=== PATIENT | female | born 1990 | race Caucasian/White ===

== ENCOUNTER 2023-12-19 00:05 | Emergency (ER) | payer MEDICAID ==
[~2023-12-19] VITALS: Ht 160 cm; Wt 77.0 kg
[2023-12-19 00:10] VITALS: O2SAT 99
[2023-12-19 00:35] LABS: BASOPHILS % 0.3 % (0.0-2.0); EOSINOPHILS % 0.5 % (0.0-5.0); HEMATOCRIT. 35.3 % (36.0-48.0); HEMOGLOBIN. 11.7 g/dL (12.0-16.0); LYMPHOCYTES % 11.9 % (20.0-50.0); MEAN CORPUSCULAR HEMOGLOBIN 27.3 pg (28.0-32.0); MEAN CORPUSCULAR HGB CONC 33.2 g/dL (31.0-37.0); MEAN CORPUSCULAR VOLUME 82.3 fL (81.0-99.0); MEAN PLATELET VOLUME 8.6 fl (7.4-10.4); MONOCYTES % 4.7 % (2.0-8.0); NEUTROPHILS % 82.6 % (40.0-76.0); PLATELET 263 x1000/uL (130-400); RED BLOOD CELL COUNT 4.29 mill/uL (4.2-5.4); RED CELL DISTRIBUTION WIDTH 14.1 % (11.6-14.6); WHITE BLOOD COUNT 9.3 x1000/uL (4.5-11.0)
[2023-12-19 00:48] LABS: CHLORIDE 109 mEq/L (98-107); POTASSIUM 3.7 mEq/L (3.5-5.1); SODIUM 137 mEq/L (136-145)
[2023-12-19 00:49] LABS: CALCIUM 8.4 mg/dL (8.7-10.4); CARBON DIOXIDE 23 mEq/L (21-32)
[2023-12-19 00:53] LABS: CLARITY URINE CLOUDY (CLEAR); COLOR URINE YELLOW (YELLOW); GLUCOSE URINE NEGATIVE (NEGATIVE); KETONES URINE 1+ (NEGATIVE); LEUKOCYTE ESTERASE URINE TRACE (NEGATIVE); NITRITE URINE NEGATIVE (NEGATIVE); OCCULT BLOOD URINE NEGATIVE (NEGATIVE); PH URINE >=9.0 (4.5-8.0); PROTEIN URINE 1+ (NEGATIVE); SPECIFIC GRAVITY URINE 1.027 (1.005-1.030)
[2023-12-19 00:54] LABS: CREATININE 0.7 mg/dL (0.6-1.0); GLUCOSE 130 mg/dL (70-105); UREA NITROGEN BLOOD 16 mg/dL (9-23)
[2023-12-19 00:56] LABS: ALANINE AMINOTRANSFERASE 28 IU/L (10-49); ALBUMIN 4.1 g/dL (3.2-4.8); ASPARTATE AMINOTRANSFERASE 48 IU/L (<34)
[2023-12-19 00:57] LABS: BILIRUBIN DIRECT 0.2 mg/dL (<=3.0); BILIRUBIN TOTAL 0.5 mg/dL (0.1-1.0); PROTEIN TOTAL 6.9 g/dL (6.0-8.3)
[2023-12-19] MEDS: ACETAMINOPHEN 325MG TABLET PO ONE (01:00)
[2023-12-19] MEDS: ONDANSETRON 4MG ODT PO ONE (01:00)
[2023-12-19] MEDS: PANTOPRAZOLE 40MG DR TABLET PO ONE (01:00)
[2023-12-19] MEDS: MAGNESIUM/ALUMINUM HYDROXIDE/SIMETHICONE 30ML UDC PO ONE (01:00)
[2023-12-19 01:49] LABS: SQUAMOUS EPITHELIAL CELL URINE 1+ /lpf (RARE/1+)
[2023-12-19 01:57] LABS: RBC URINE 0-2 /hpf (0-2); WBC URINE 0-2 /hpf (0-2)
[2023-12-19 02:00] LABS: BACTERIA URINE TRACE
[2023-12-19] MEDS ORDERED: IBUP-2029 MT (03:56)
[2023-12-19] MEDS ORDERED: FAMO40TA70 MT (03:56)
[2023-12-19 04:38] VITALS: BP 134/66; PULSE 74; RESP 18; TEMP 98.2
== END 2023-12-19 04:40 | disposition home or self-care (01) ==
LOC: ER 00:05
DX: R10.13 Epigastric pain (principal); Z90.49 Acquired absence of other specified parts of digestive tract; Z98.890 Other specified postprocedural states
CPT/HCPCS: 99285; 76705; 71045; 80076; 80048; 81003; 81025; 83690; 85025; 36415; 93005; Q0162

== ENCOUNTER 2024-03-02 14:22 | Emergency (ER) | payer MEDICAID ==
[~2024-03-02 14:22] MED LIST: FAMO40TA70 MT; IBUP-2029 MT
[2024-03-02 14:26] VITALS: O2SAT 100
[2024-03-02 15:10] VITALS: BP 118/74; PULSE 80; RESP 16
[2024-03-02] MEDS: IBUPROFEN 600MG TABLET PO ONE (15:10)
== END 2024-03-02 18:40 | disposition home or self-care (01) ==
LOC: ER 14:22
DX: J06.9 Acute upper respiratory infection, unspecified (principal); Z90.49 Acquired absence of other specified parts of digestive tract; Z98.890 Other specified postprocedural states
CPT/HCPCS: 87070; 87430; 99283

== ENCOUNTER 2024-06-08 19:21 | Emergency (ER) | payer MEDICAID, OTHER ==
[~2024-06-08] VITALS: Ht 162.6 cm; Wt 76.5 kg
[2024-06-08 19:31] VITALS: O2SAT 100
[2024-06-08] MEDS ORDERED: NAPR-1176 MT (22:32)
[2024-06-08] MEDS: IBUPROFEN 400MG TABLET PO ONE (22:59)
[2024-06-08 23:00] VITALS: BP 152/97; PULSE 74; RESP 18; TEMP 36.7; O2SAT 100
== END 2024-06-08 23:01 | disposition home or self-care (01) ==
LOC: ER 19:21
DX: S60.021A Contusion of right index finger without damage to nail, initial encounter (principal); S60.031A Contusion of right middle finger without damage to nail, initial encounter; Z90.49 Acquired absence of other specified parts of digestive tract; Z98.890 Other specified postprocedural states; Z79.1 Long term (current) use of non-steroidal anti-inflammatories (NSAID); W23.2XXA Caught, crushed, jammed or pinched between a moving and stationary object, initial encounter; Y93.89 Activity, other specified; Y92.89 Other specified places as the place of occurrence of the external cause; Y99.8 Other external cause status
CPT/HCPCS: 73120; 99283